=== PATIENT | female | born 1945 | race Caucasian/White ===

== ENCOUNTER 2017-05-24 11:06 | Emergency (ER) | payer MEDICARE, OTHER ==
[2017-05-24 11:22] VITALS: BP 135/70
--- NOTE | 2017-05-24 11:41 | EDM.PDOC ---
ED HPI GENERAL MEDICAL PROBLEM - General Chief Complaint: Chest Pain Stated Complaint: CHEST PAIN Time Seen by Provider: 05/24/17 11:41 Source of Information: Reports: Patient History Limitations: Reports: No Limitations - History of Present Illness INITIAL COMMENTS - FREE TEXT/NARRATIVE: 72-year-old female presents to the ED with intermittent vaguely described chest pains. They were present last night and present again this morning but absent when she attends the ED. There is no associated cough fever chills or sputum production. She states the pains tend to be sharp and stabbing and come and go. They often will travel from the left chest into the left arm in the medial aspect. Of note the patient has had a previous left-sided mastectomy with lymph node dissection for cancer of the breast. She has been experiencing chest wall pain off and on since breast surgery which is to be expected. She has no history of congestive failure or heart known problems. No recent travel history that would be worrisome for DVT. Past history of cancer places her at higher risk . Oxygen saturation is 100%. Heart rate is 50/m. Onset: Unknown/Unsure (Has been having intermittent chest pains off and on for several years but worse the last couple of days.) Onset Date: 05/23/17 Duration: Hour(s): (First noted again last night and more persistent today. She slept well last night.) Location: Reports: Chest (Left precordial chest radiating somewhat into the left shoulder and medial arm. No necessary made worse by deep breathing.), Upper Extremity, Left Quality: Reports: Sharp, Stabbing, Other Severity: Mild Improves with: Reports: None Worsens with: Reports: None (They come and go on their own) Context: Denies: Activity, Exercise, Lifting, Sick Contact, Trauma, Other Associated Symptoms: Reports: Chest Pain. 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 (see below) (None.) - Related Data Allergies Allergy/AdvReac Type Severity Reaction Status Date / Time gabapentin Allergy Other Verified 12/02/15 20:33 prednisone Allergy Other Verified 08/15/16 20:33 primidone [From Mysoline] Allergy Other Verified 05/24/17 11:22 Home Meds: Home Meds Acetaminophen [Extra Strength Non-Aspirin] 1,000 mg PO Q6HR PRN 01/14/15 [ History] Calcium Citrate/Vitamin D3 [Calcium Citrate + D] 1 tab PO DAILY 01/14/15 [ History] Fluticasone Propionate [Flonase] 1 spray NASBOTH DAILY 01/14/15 [History] Loratadine [Claritin] 10 mg PO DAILY PRN 01/14/15 [History] Multivit-Min/FA/Lycopene/Lut [Certavite Sr-Antioxidant Tab] 1 tab PO DAILY 01/14 [History] [place]akeman-3S/DHA/Epa/Fish Oil [[place]akeman-3 Fish Oil 1,000 mg Sfgl] 4 tab PO DAILY [History] Propranolol HCl [Inderal LA] 80 mg PO DAILY 01/14/15 [History] Hydrocortisone Butyrate/Emoll [Hydrocort Buty 0.1% Lipo Cream] 45 gm TP TID PRN #1 cream..g. 12/02/15 [Rx] Lactobacillus Reuteri [Biogaia] 1 tab PO DAILY 12/03/15 [History] Non-Formulary Medication [NF Drug] 30 g TOP TID 12/03/15 [History] Topiramate [Topamax] 50 mg PO BEDTIME 12/03/15 [History] Magnesium Hydroxide [Milk of Magnesia] 30 ml PO BID PRN #0 cup 12/04/15 [Rx] Multivitamins,Therapeutic [Thera] 1 each PO WITHBREAKFAST tablet 12/04/15 [Rx] Sennosides [Senna] 8.6 mg PO BID PRN #0 tablet 12/04/15 [Rx] diphenhydrAMINE [Benadryl] 25 mg PO Q4H PRN #0 tablet 12/04/15 [Rx] Pravastatin Sodium 10 mg PO DAILY 05/24/17 [History] Past Medical History HEENT History: Reports: Impaired Vision Cardiovascular History: Reports: High Cholesterol Respiratory History: Reports: Other (See Below) Other Respiratory History: seasonal allergies Gastrointestinal History: Reports: Chronic Constipation 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 Apparently one lymph node out of 15 was positive for cancer. She therefore required chemotherapy. Initial diagnosis of breast cancer was made in 2014.) Musculoskeletal Surgical History: Reports: Arthroscopic Knee, Hip Replacement Oncologic Surgical History: Reports: Biopsy of Breast, Mastectomy Social & Family History - Family History GI: Reports: Colon Polyps Musculoskeletal: Reports: Osteoarthritis Neurological: Reports: CVA Endocrine/Metabolic: Reports: Other (See Below) Other Endocrine/Metabolic Family History: adina thyroiditis Hematologic: Reports: Anemia Dermatologic: Reports: Other (See Below) Other Dermatologic Family History: seborrheic keratosis Oncologic: Reports: Colon, Leukemia, Skin Other Oncologic Family History: brother and mother and father - Tobacco Use Smoking Status *Q: Never Smoker Second Hand Smoke Exposure: No - Caffeine Use Caffeine Use: Reports: None - Alcohol Use Days Per Week of Alcohol Use: 1 (occasional) - Recreational Drug Use Recreational Drug Use: No Drug Use in Last 12 Months: No - Living Situation & Occupation Living situation: Reports: Single Occupation: Employed ED ROS GENERAL - Review of Systems Review Of Systems: See Below Constitutional: Denies: Fever, Chills, Malaise, Weakness, Fatigue, Decreased Appetite, Weight Loss HEENT: Reports: No Symptoms, Glasses Respiratory: Denies: Shortness of Breath, Wheezing, Pleuritic Chest Pain, Cough , Sputum, Hemoptysis, Other Cardiovascular: Reports: Chest Pain. Denies: Blood Pressure Problem (See history present illness), Claudication, Dyspnea on Exertion, Edema, Lightheadedness, Orthopnea, Palpitations Endocrine: Reports: No Symptoms GI/Abdominal: Reports: No Symptoms : Reports: No Symptoms Musculoskeletal: Reports: Joint Pain (Occasional pain knees hips lower back.) Skin: Reports: No Symptoms Neurological: Reports: No Symptoms Psychiatric: Reports: No Symptoms ED EXAM, GENERAL - Physical Exam Exam: See Below Exam Limited By: No Limitations General Appearance: Alert, WD/WN Eye Exam: Bilateral Eye: Normal Inspection Throat/Mouth: Normal Inspection, Normal Lips, Normal Teeth, Normal Oropharynx Head: Atraumatic, Normocephalic Neck: Normal Inspection, Supple, Non-Tender Respiratory/Chest: No Respiratory Distress, Lungs Clear, Normal Breath Sounds, Other (Does have some tenderness on palpation of the ribs 34 and 5 on the left side midclavicular line. Left breast is absent with a well-healed mastectomy scar.) Cardiovascular: Normal Peripheral Pulses, Regular Rate, Rhythm, No Edema, No Gallop, No Murmur, No Rub Peripheral Pulses: 3+: Posterior Tibial (L), Posterior Tibial (R), Dorsalis Pedis (L), Dorsalis Pedis (R) GI/Abdominal: Normal Bowel Sounds, Soft, Non-Tender, Other (Question a palpable spleen and palpable liver on deep inspiration. She is quite thin and I think I can feel these organs easily.) Back Exam: Normal Inspection, Full Range of Motion. No: CVA Tenderness (L), CVA Tenderness (R) Extremities: Normal Inspection, Normal Range of Motion, Non-Tender, No Pedal Edema Neurological: Alert, Oriented, CN II-XII Intact, Normal Cognition, Normal Gait Psychiatric: Normal Affect, Normal Mood, Anxious Skin Exam: Warm, Dry, Intact, Normal Color, No Rash (Moderately anxious) Lymphatic: No Adenopathy EKG INTERPRETATION EKG Date: 05/24/17 Time: 11:27 Rhythm: Other (Sinus bradycardia at 49/m) Rate (Beats/Min): 49 [place]: Normal (Borderline first-degree AV block) P-Wave: Present QRS: RBBB (RSR prime in V2 in complete heart block) QT: Prolonged (QT mildly prolonged for rate.) EKG Interpretation Comments: Borderline ECG. No signs of ischemia Course - Vital Signs Last Recorded V/S: Last Vital Signs Temp 36.9 C 05/24/17 11:17 Pulse 47 L 05/24/17 11:17 Resp 16 05/24/17 11:17 BP 135/70 05/24/17 11:17 Pulse Ox 100 05/24/17 11:17 - Orders/Labs/Meds Orders: Active Orders 24 hr Category Date Time Status EKG Documentation Completion [RC] STAT Care 05/24/17 11:40 Active Labs: Laboratory Tests 05/24/17 05/24/17 05/24/17 Range/Units 12:00 12:00 12:00 WBC 4.52 (3.98-10.04) K/mm3 RBC 3.56 L (3.98-5.22) M/mm3 Hgb 11.3 (11.2-15.7) gm/L Hct 34.6 (34.1-44.9) % MCV 97.2 H (79.4-94.8) fl MCH 31.7 (25.6-32.2) pg MCHC 32.7 (32.2-35.5) g/dl RDW Std Deviation 45.4 (36.4-46.3) fL Plt Count 142 L (182-369) K/mm3 MPV 10.0 (9.4-12.3) fl Neutrophils % (Manual) 54 (40-60) % Band Neutrophils % 0 (0-10) % Lymphocytes % (Manual) 45 H (20-40) % Atypical Lymphs % 0 % Monocytes % (Manual) 1 L (2-10) % Eosinophils % (Manual) 0 L (0.7-5.8) % Basophils % (Manual) 0 L (0.1-1.2) Platelet Estimate Adequate RBC Morph Comment Normal PT 11.4 (8.0-13.0) SECONDS INR 1.04 Sodium 137 (136-145) mEq/L Potassium 3.8 (3.5-5.1) mEq/L Chloride 104 (98-107) mEq/L Carbon Dioxide 27 (21-32) mEq/L Anion Gap 9.8 (5-15) BUN 13 (7-18) mg/dL Creatinine 0.8 (0.55-1.02) mg/dL Est Cr Clr Drug Dosing 7.17 mL/min Estimated GFR (MDRD) > 60 (>60) mL/min BUN/Creatinine Ratio 16.3 (14-18) Glucose 97 (83-115) mg/dL Calcium 9.5 (8.5-10.1) mg/dL Magnesium (1.8-2.4) mg/dl Total Bilirubin 0.4 (0.2-1.0) mg/dL AST 18 (15-37) U/L ALT 20 (14-59) U/L Alkaline Phosphatase 48 (46-116) U/L CK-MB (CK-2) 0.8 (0-3.6) ng/ml Troponin I < 0.017 (0.00-0.056) ng/mL C-Reactive Protein (<1.0) mg/dL Total Protein 6.5 (6.4-8.2) g/dl Albumin 3.5 (3.4-5.0) g/dl Globulin 3.0 gm/dL Albumin/Globulin Ratio 1.2 (1-2) 05/24/17 Range/Units 12:00 WBC (3.98-10.04) K/mm3 RBC (3.98-5.22) M/mm3 Hgb (11.2-15.7) gm/L Hct (34.1-44.9) % MCV (79.4-94.8) fl MCH (25.6-32.2) pg MCHC (32.2-35.5) g/dl RDW Std Deviation (36.4-46.3) fL Plt Count (182-369) K/mm3 MPV (9.4-12.3) fl Neutrophils % (Manual) (40-60) % Band Neutrophils % (0-10) % Lymphocytes % (Manual) (20-40) % Atypical Lymphs % % Monocytes % (Manual) (2-10) % Eosinophils % (Manual) (0.7-5.8) % Basophils % (Manual) (0.1-1.2) Platelet Estimate RBC Morph Comment PT (8.0-13.0) SECONDS INR Sodium (136-145) mEq/L Potassium (3.5-5.1) mEq/L Chloride (98-107) mEq/L Carbon Dioxide (21-32) mEq/L Anion Gap (5-15) BUN (7-18) mg/dL Creatinine (0.55-1.02) mg/dL Est Cr Clr Drug Dosing mL/min Estimated GFR (MDRD) (>60) mL/min BUN/Creatinine Ratio (14-18) Glucose (83-115) mg/dL Calcium (8.5-10.1) mg/dL Magnesium 1.8 (1.8-2.4) mg/dl Total Bilirubin (0.2-1.0) mg/dL AST (15-37) U/L ALT (14-59) U/L Alkaline Phosphatase (46-116) U/L CK-MB (CK-2) (0-3.6) ng/ml Troponin I (0.00-0.056) ng/mL C-Reactive Protein < 0.2 (<1.0) mg/dL Total Protein (6.4-8.2) g/dl Albumin (3.4-5.0) g/dl Globulin gm/dL Albumin/Globulin Ratio (1-2) - Radiology Interpretation Free Text/Narrative:: 72-year-old female presents to the ED with intermittent nonspecific are vaguely described chest pains from what I can gather they are fleeting and rather sharp and stabbing versus pressure. Potential radiate into the left shoulder area and sometimes into the arm. By history she is probably had these off and on since she had her left mastectomy. They just were more intense the last day or 2. Examination otherwise reveals an anxious lady was sinus bradycardia at 50/m. She is slightly tender on palpation of the left anterior chest wall. The remainder the examination is normal she is asymptomatic as far as the bradycardia goes. Plan 1 view chest x-ray routine labs including cardiac markers BNP. - Re-Assessments/Exams Free Text/Narrative Re-Assessment/Exam: 05/24/17 13:13 chest x-ray reveals heart may size and mediastinum with to be normal. Surgical clips are evident within the left axilla previous axillary lymph node dissection. Lungs were otherwise clear. Bony structures are grossly intact. 05/24/17 13:15 White count is 4.52 with a normal differential of 54% neutrophils and 45% leukocytes. Hemoglobin is 11.3 with hematocrit of 34.6. MCV is elevated at 97.2. Mylicon does 142,000. PT is 11.4 with an INR 1.04. Sodium is 137 with potassium of 3.8. Toward 104 bicarbonate 27. Anion gap is 9.8 with a BUN of 13. Creatinine is 0.8. GFR is greater than 60. Glucose is 97. Calcium normal at 9.5. Magnesium 1.8. Bilirubin 0.4. AST is 18 ALT is 20. Alkaline phosphatase 48. CK-MB fraction is 0.8. Troponin I is less than 0.017. CRP is less than 0.2. Departure - Departure Time of Disposition: 13:59 Disposition: Home, Self-Care 01 Condition: Fair Clinical Impression: Non-cardiac chest pain Referrals: Jeanine Charles CONSULTING DATABASE ADMINISTRATOR [Primary Care Provider] - Forms: ED Department Discharge Additional Instructions: Evaluation the emergency room today in regards to development of intermittent central and left-sided chest pains. Investigation of the heart lungs and chest revealed no abnormalities. Chest x-ray is completely normal heart tracing reveals a low heart rate typically 50-52/m with no other abnormalities associated with it. Cardiac enzymes in your blood work are completely normal. Similarly liver kidneys and all the other blood tests were completely normal as well. Therefore chest pain is of non-heart cause and is likely chest wall and by history the fleeting pains are actually due to nerve pain possibly started when you had left sided mastectomy which damages a lot of the nerves of the chest wall from the surgery itself. The chest pains are bad enough for frequent mouth and Aleve 2 tablets every 8 hours may alleviate a good deal of the pain. Otherwise no treatment is necessarily indicated. - My Orders Last 24 Hours: My Active Orders 05/24/17 11:40 EKG Documentation Completion [RC] STAT - Assessment/Plan Last 24 Hours: My Active Orders 05/24/17 11:40 EKG Documentation Completion [RC] STAT
--- NOTE | 2017-05-24 12:58 | CR ---
Chest: Portable view of the chest is obtained. Comparison: No prior study. Heart size and mediastinum are within normal limits for portable technique. Previous left mastectomy is noted. Surgical clips are seen within the left axillary region compatible with previous axillary lymph node dissection. Lungs are clear. Bony structures are grossly intact. Impression: 1. Previous left mastectomy. 2. Nothing acute is appreciated on portable chest x-ray. Diagnostic code #2
== END 2017-05-24 14:20 | disposition home or self-care (01) ==
LOC: JD.ED 11:06
DX: R07.89 Other chest pain (principal); E78.00 Pure hypercholesterolemia, unspecified; Z88.8 Allergy status to other drugs, medicaments and biological substances; Z79.899 Other long term (current) drug therapy
CPT/HCPCS: 36415; 71045; 71045-26; 80053; 82553; 83735; 84484; 85025; 85610; 86140; 93005; 93010; 99284-25; 99285-25

== ENCOUNTER 2022-03-23 09:00 | Day surgery (SDC) | payer MEDICARE, OTHER ==
[~2022-03-23 09:00] MED LIST: Lactated Ringers 1,000 ML IV SCH; Lidocaine 1%/Sod Bicarbonate in NS 8.4% 1 ML Syringe IDERM PRN; Morphine 8 MG, EPINEPHrine 0.3 MG, Cefuroxime 750 MG, Ketorolac 30 MG, Sodium Chloride ... PRN; Sodium Chloride 0.9% 10 ML Syringe FLUSH PRN; Sodium Chloride 0.9% 10 ML Syringe FLUSH SCH
[2022-03-23] MEDS ORDERED: Vancomycin 1 GM SDV ONE (09:02)
[2022-03-23] MEDS ORDERED: Tranexamic Acid 1,000 MG/10 ML Vial ONE (09:02)
[2022-03-23] MEDS ORDERED: Propofol 200 MG/20 ML SDV ONE (09:43)
[2022-03-23] MEDS ORDERED: Midazolam 1 MG/ML 2 ML SDV ONE (10:17)
[2022-03-23] MEDS ORDERED: ePHEDrine 50 MG/ML SDV ONE (10:39)
[2022-03-23] MEDS ORDERED: Lidocaine 1% 2 ML ONE (10:40)
[2022-03-23] MEDS ORDERED: fentaNYL 100 MCG/2 ML SDV ONE ×2 (10:42→12:30)
[2022-03-23] MEDS ORDERED: ceFAZolin 2 GM Vial ONE (10:42)
[2022-03-23] MEDS ORDERED: Ondansetron 4 MG/2 ML SDV ONE (11:36)
[2022-03-23] MEDS ORDERED: Ropivacaine 0.5% 5 MG/ML 30 ML SDV ONE (12:16)
[2022-03-23] MEDS: fentaNYL 100 MCG/2 ML SDV IVPUSH PRN ×2 (12:30→12:40)
[2022-03-23] MEDS ORDERED: EPINEPHrine 1 MG/ML SDV ONE (12:34)
[2022-03-23] MEDS ORDERED: HYDROmorphone 0.5 MG/0.5 ML Syringe IVPUSH PRN (12:44)
[2022-03-23] MEDS ORDERED: Ondansetron 4 MG/2 ML SDV IVPUSH PRN (12:44)
[2022-03-23 17:54] VITALS: BP 118/70; PULSE 68
== END 2022-03-23 17:10 | disposition home or self-care (01) ==
LOC: JD.SDS 09:00
PROVIDERS: ATTEND Orthopaedic Surgery
DX: M17.11 Unilateral primary osteoarthritis, right knee (principal); E78.00 Pure hypercholesterolemia, unspecified; D64.9 Anemia, unspecified; I25.10 Atherosclerotic heart disease of native coronary artery without angina pectoris; M19.90 Unspecified osteoarthritis, unspecified site; I10 Essential (primary) hypertension; F41.9 Anxiety disorder, unspecified; Z79.899 Other long term (current) drug therapy; Z88.6 Allergy status to analgesic agent; Z88.8 Allergy status to other drugs, medicaments and biological substances; Z98.890 Other specified postprocedural states; Z91.048 Other nonmedicinal substance allergy status; Z79.82 Long term (current) use of aspirin
CPT/HCPCS: 0055T; 27447; 73560; 97116; 97161; C1713; C1776; J0171; J0690; J0697; J1170; J1885; J2250; J2270; J2405; J2704; J2795; J3010; J3370; J7120; 01402; 64450; 76942; 99100

== ENCOUNTER 2023-05-13 09:53 | Emergency (ER) | payer MEDICARE, OTHER ==
[2023-05-13 10:22] LABS: BASOPHILS PERCENT AUTO 0.2 % (0.0-1.0); EOSINOPHILS ABSOLUTE AUTO 0.1 K/mm3 (0.0-0.4); EOSINOPHILS PERCENT AUTO 1.5 % (0.0-6.0); HEMATOCRIT 36.2 % (37.0-47.0); HEMOGLOBIN 11.8 gm/dl (12.0-16.0); IMMATURE GRAN ABSOLUTE AUTO 0.01 K/mm3 (0.00-0.05); IMMATURE GRAN PERCENT AUTO 0.2 % (0.0-0.4); LYMPHOCYTES PERCENT AUTO 20.6 % (24.0-44.0); MEAN CORPUSCULAR HEMOGLOBIN 34.1 pg (28.0-32.0); MEAN CORPUSCULAR HGB CONC 32.6 g/dl (32.0-36.0); MEAN CORPUSCULAR VOLUME 104.6 fl (83.0-99.0); MEAN PLATELET VOLUME 9.5 fl (9.4-12.3); MONOCYTES ABSOLUTE AUTO 0.6 K/mm3 (0.0-0.8); MONOCYTES PERCENT AUTO 11.7 % (0.0-8.0); NEUTROPHILS ABSOLUTE AUTO 3.1 K/mm3 (1.8-7.7); NEUTROPHILS PERCENT AUTO 65.8 % (41.0-71.0); PLATELET COUNT,PLT 134 K/mm3 (150-400); RED BLOOD CELL COUNT 3.46 M/mm3 (4.10-5.30); WHITE BLOOD CELL COUNT,WBC 4.71 K/mm3 (3.9-11.3)
[2023-05-13 11:10] LABS: A/G RATIO 0.9 (1-2); ALBUMIN 3.1 g/dl (3.4-5.0); ANION GAP 12.7 (5-15); BILIRUBIN TOTAL 0.2 mg/dL (0.2-1.0); BUN/CREATININE RATIO 22.2 (14-18); CALCIUM 9.5 mg/dL (8.5-10.1); CREATININE 0.9 mg/dL (0.55-1.02); EST CRCL DRUG DOSING (CG) 49.29 mL/min; POTASSIUM,K 3.7 mEq/L (3.5-5.1); PROTEIN TOTAL,TP 6.6 g/dl (6.4-8.2)
[2023-05-13] MEDS ORDERED: Sodium Chloride 0.9% 10 ML Syringe FLUSH PRN (12:14)
[2023-05-13] MEDS ORDERED: Iopamidol 755 Mg/ML 100 ML Bottle IVPUSH ONE ×2 (12:14→12:38)
[2023-05-13 12:15] LABS: CORONAVIRUS COVID-19 NAA NEGATIVE (NEGATIVE); INFLUENZA A NAA NEGATIVE (NEGATIVE); RESPIRATORY SYNCYTIAL VIR NAA NEGATIVE (NEGATIVE)
[2023-05-13] MEDS ORDERED: Sodium Chloride 0.9% 100 ML IV SCH ×2 (12:15→12:45)
[2023-05-13 12:18] LABS: APPEARANCE,URINE CLEAR (Clear); BILIRUBIN,URINE NEGATIVE (Negative); COLOR,URINE YELLOW (Yellow); GLUCOSE,URINE NEGATIVE (Negative); KETONES,URINE NEGATIVE (Negative); LEUKOCYTE ESTERASE,URINE NEGATIVE (Negative); NITRITE,URINE NEGATIVE (Negative); OCCULT BLOOD,URINE TRACE-INTACT (Negative); PROTEIN,URINE NEGATIVE (Negative); UROBILINOGEN,URINE 0.2 (0.2-1.0)
[2023-05-13 12:39] LABS: BACTERIA,URINE NOT SEEN /hpf (FEW); RBC,URINE 0-5 /hpf (0-5); SQUAMOUS EPITHELIAL CELLS,UR 0-5 /hpf (0-5); WBC,URINE 0-5 /hpf (0-5)
[2023-05-13 12:40] LABS: MUCUS,URINE NOT SEEN /hpf (FEW)
[2023-05-13 14:04] VITALS: BP 124/68; PULSE 51
== END 2023-05-13 13:25 | disposition home or self-care (01) ==
LOC: JD.ED 09:53
DX: R06.00 Dyspnea, unspecified (principal); E78.00 Pure hypercholesterolemia, unspecified; Z79.82 Long term (current) use of aspirin; Z88.8 Allergy status to other drugs, medicaments and biological substances; Z79.899 Other long term (current) drug therapy
CPT/HCPCS: 0241U; 36415; 71045; 71275; 80053; 81001; 83605; 83880; 84484; 85025; 85379; 93005; 99285; J3490; Q9967; 93010; 99284